=== PATIENT | female | born 1995 | race Caucasian/White ===

== ENCOUNTER 2020-10-29 17:54 | Emergency (ER) | payer BC ==
[~2020-10-29] VITALS: Ht 162.6 cm; Wt 122.7 kg
[2020-10-29 19:15] LABS: BASOPHILS % (AUTO) 0.1 % (0-1); EOSINOPHILS % (AUTO) 0.1 % (0-6); HEMATOCRIT 40.5 % (35.0-45.0); HEMOGLOBIN 12.7 g/dl (12.0-16.0); LYMPHOCYTES # (AUTO) 0.9 X10'3 (1.1-4.8); LYMPHOCYTES % (AUTO) 13.5 % (21-51); MEAN CORPUSCULAR HEMOGLOBIN 23.3 PG (27.0-31.0); MEAN CORPUSCULAR HGB CONC 31.4 g/dL (33.0-36.5); MEAN CORPUSCULAR VOLUME 74.1 FL (78-98); MEAN PLATELET VOLUME 9.1 FL (7.4-10.4); MONOCYTES # (AUTO) 0.2 X10'3 (0-0.9); MONOCYTES % (AUTO) 3.2 % (2-12); NEUTROPHILS # (AUTO) 5.5 X10'3 (1.8-7.7); NEUTROPHILS % (AUTO) 83.1 % (42-75); PLATELET COUNT 179 X10'3 (140-440); RED BLOOD COUNT 5.47 X10'6 (4.20-5.60); RED CELL DISTRIBUTION WIDTH 18.2 % (11.5-14.5); WHITE BLOOD COUNT 6.6 X10'3 (4.5-11.0)
[2020-10-29 19:23] LABS: HCG SERUM QL NEGATIVE
[2020-10-29 19:29] LABS: ALANINE AMINOTRANSFERASE 47 U/L (12-78); ALBUMIN 2.9 G/DL (3.4-5.0); ALBUMIN/GLOBULIN RATIO 0.7 (1.1-1.5); ALKALINE PHOSPHATASE 66 IU/L (46-116); ANION GAP 14 (8-16); ASPARTATE AMINO TRANSFERASE 31 U/L (10-37); BILIRUBIN,TOTAL 0.5 MG/DL (0.1-1.0); BLOOD UREA NITROGEN 9 MG/DL (7-18); BUN/CREATININE RATIO 11.4 (6.6-38.0); CALCIUM 8.2 MG/DL (8.5-10.1); CHLORIDE 99 MMOL/L (99-107); CREATININE 0.79 MG/DL (0.40-0.90); D-DIMER 5.53 MG/L FEU (0-0.50); GLUCOSE 122 MG/DL (70-104); POTASSIUM 3.5 MMOL/L (3.5-5.1); SODIUM 135 MMOL/L (135-145); TOTAL CARBON DIOXIDE 22.4 MMOL/L (24-32); eGFR 89 ML/MIN
[2020-10-29] MEDS ORDERED: iohexol 350MG/ML 100ml bottle IV ONE (19:29)
[2020-10-29] MEDS ORDERED: dexamethasone sod phosphate 10mg/ml inj IV STA (19:29)
[2020-10-29] MEDS ORDERED: normal saline 1000ML IV soln IVB ONE (19:30)
[2020-10-29] MEDS ORDERED: ALBUTEROL INHALER 1 PUFF/90 MCG INHALER IH PRN (19:30)
[2020-10-29] MEDS ORDERED: ondansetron/PF 4mg/2ml inj IV ONE (19:30)
[2020-10-29] MEDS ORDERED: acetaminophen 325mg tablet PO ONE (19:30)
[2020-10-29 19:34] LABS: TROPONIN I < 0.04 NG/ML (0.0-0.05)
[2020-10-29] MEDS ORDERED: CASIRIVIMAB/IMDEVIMAB inject. 10 ML in normal saline 100ml IV soln 100 ML IV ONE (20:30)
[2020-10-29] MEDS ORDERED: diphenhydrAMINE 50 mg/ml inj IV ONE (20:45)
[2020-10-29] MEDS ORDERED: ALBU6.7H9 INH (21:55)
[2020-10-29] MEDS ORDERED: AZIT500T PO (21:55)
[2020-10-29] MEDS ORDERED: DEXA6TAB PO (21:55)
[2020-10-29 22:15] VITALS: BP 129/81
== END 2020-10-29 22:08 | disposition home or self-care (01) ==
LOC: EDSEX 17:57 → ER 17:57
DX: U07.1 COVID-19 (principal); J12.82 Pneumonia due to coronavirus disease 2019; R42 Dizziness and giddiness; R19.7 Diarrhea, unspecified; R11.10 Vomiting, unspecified; Z79.899 Other long term (current) drug therapy
CPT/HCPCS: 36415; 71045; 71275; 80053; 84484; 84703; 85025; 85379; 93005; 96361; 96374; 96375; 99291; J1100; J1200; J2405; J7030; M0243; Q0244; Q9967